=== PATIENT | female | born 1950 | race Caucasian/White ===

== ENCOUNTER 2023-09-03 07:07 | Inpatient (IN) ==
[2023-09-03] MEDS ORDERED: Morphine 4 MG/ML VIAL (1 ml) ONE (07:46)
[2023-09-03] MEDS: NS 0.9% 1000 ml BAG 1,000 ML IV ONE ×3 (07:52→11:26)
[2023-09-03] MEDS: fentaNYL 100 mcg/2 ml 50 MCG/ML VIAL IV SLOW PU ONE (07:52)
[2023-09-03] MEDS: Ondansetron 4 mg VIAL 2 MG/ML 2 ml VIAL IV ONE (07:52)
[2023-09-03] MEDS: Morphine 4 MG/ML VIAL (1 ml) IV ONE ×2 (07:52→08:34)
[2023-09-03 07:56] LABS: Venous Bicarbonate HCO3 19.8 mmol/L (24-28)
[2023-09-03 07:57] LABS: ABS Basophils 0.1 10^3/uL (0.0-0.1); ABS Lymphocytes 0.8 10^3/uL (1.0-4.8); ABS Monocytes 0.8 10^3/uL (0.0-0.9); ABS Neutrophils 15.2 10^3/uL (1.5-7.6); ABS Nucleated RBC 0.01 10^3/ul; Hematocrit 32.9 % (35-45); Hemoglobin 10.4 g/dL (11.5-14.3); Lymphocyte % 4.9 %; Mean Corpuscular Hgb Conc 31.6 g/dL (31-36); Mean Corpuscular Volume 75.9 fL (80-97); Nucleated Red Blood Cells % 0.1 %/100WBC (0.0-0.8); Platelet Count 414 10^3/uL (150-450); Red Blood Count 4.34 10^6/uL (3.63-4.92); Red Cell Distribution Width 17.3 % (12-17); White Blood Count 16.9 10^3/uL (3.8-11.8)
[2023-09-03 08:13] LABS: INR 1.46 (0.83-1.13)
[2023-09-03 08:42] LABS: Albumin 4.2 g/dL (3.2-5.2); Albumin/Globulin Ratio 1.4 (1-3); Calcium 9.9 mg/dL (8.6-10.3); Creatinine, Serum 1.16 mg/dL (0.51-0.95); Globulin 3.1 g/dL (2-4); Magnesium 1.8 mg/dL (1.9-2.7); Total Bilirubin 0.5 mg/dL (0.2-1.0); Total Protein 7.3 g/dL (6.4-8.9); eGFR CKD-EPI 49.5 (>60)
[2023-09-03 09:18] LABS: High Sensitivity Troponin 1 Hr 21 pg/mL (<15)
[2023-09-03] MEDS: Iohexol 350 (CONTRAST) 500 ML MDV IV ONE (09:42)
[2023-09-03 10:00] LABS: Urine Appearance Turbid; Urine Bilirubin Negative (Negative); Urine Blood Negative (Negative); Urine Color Yellow; Urine Glucose Negative (Negative); Urine Ketones 1+ (Negative); Urine Nitrite 1+ (Negative); Urine Protein 1+ (>=30 mg/dL) (Negative); Urine Specific Gravity 1.035 (1.002-1.030); Urine Urobilinogen Negative (Negative)
[2023-09-03 10:04] LABS: Urine Bacteria Absent /HPF (Absent); Urine Red Blood Cell Trace(0-2/hpf) /HPF (0-Trace); Urine Squamous Epithelial Cell Present /HPF (Absent); Urine White Blood Cell 1+(6-10/hpf) /HPF (0-Trace)
[2023-09-03] MEDS: Metoprolol Tartrate 5 mg VIAL 5 ml VIAL (1 mg/ml) IV ONE ×2 (11:37→15:20)
[2023-09-03] MEDS ORDERED: Metoprolol Tartrate 5 mg VIAL 5 ml VIAL (1 mg/ml) IV PRN ×2 (15:05→16:22)
[2023-09-03] MEDS: Digoxin IV 0.5 MG/2 ML AMP (0.25 MG/ML) IV ONE (15:18)
[2023-09-03] MEDS: Enoxaparin 100 MG/ML SYR SUBCUT SCH (15:21)
[2023-09-03] MEDS: Magnesium Sulfate 2 gm BAG 2 GM/50 ML BAG IVPB ONE (15:25)
[2023-09-03] MEDS: Metoprolol Tartrate 5 mg VIAL 5 ml VIAL (1 mg/ml) IV SCH (16:54)
[2023-09-03] MEDS: Digoxin IV 0.5 MG/2 ML AMP (0.25 MG/ML) IV SCH (20:21)
[2023-09-03] MEDS: Nystatin TOP POWDER 15 GM BTL TOPICAL SCH (20:30)
[2023-09-04 04:11] LABS: ABS Basophils 0.1 10^3/uL (0.0-0.1); ABS Eosinophils 0.1 10^3/uL (0.0-0.5); ABS Monocytes 1.3 10^3/uL (0.0-0.9); ABS Nucleated RBC 0.01 10^3/ul; Eosinophil % 0.7 %; Hematocrit 25.2 % (35-45); Hemoglobin 7.8 g/dL (11.5-14.3); Lymphocyte % 16.2 %; Mean Corpuscular Hemoglobin 23.8 pg (27-33); Mean Corpuscular Hgb Conc 31.1 g/dL (31-36); Mean Corpuscular Volume 76.4 fL (80-97); Mean Platelet Volume 7.4 fL (7.5-11.2); Platelet Count 290 10^3/uL (150-450); Red Cell Distribution Width 17.6 % (12-17); White Blood Count 12.4 10^3/uL (3.8-11.8)
[2023-09-04 05:06] LABS: ALT 11 U/L (7-52); AST 17 U/L (13-39); Albumin 3.3 g/dL (3.2-5.2); Albumin/Globulin Ratio 1.4 (1-3); Alkaline Phosphatase 81 U/L (35-149); Anion Gap 1 mmol/L (2-16); Blood Urea Nitrogen 16 mg/dL (6-24); CO2 Carbon Dioxide 27 mmol/L (22-32); Calcium 8.8 mg/dL (8.6-10.3); Chloride 114 mmol/L (101-111); Creatinine, Serum 1.06 mg/dL (0.51-0.95); Globulin 2.3 g/dL (2-4); Glucose 121 mg/dL (70-100); Magnesium 2.3 mg/dL (1.9-2.7); Potassium 4.6 mmol/L (3.5-5.0); Sodium 142 mmol/L (135-145); Total Bilirubin 0.4 mg/dL (0.2-1.0); Total Protein 5.6 g/dL (6.4-8.9); eGFR CKD-EPI 55.1 (>60)
[2023-09-04 08:39] LABS: % Iron Saturation 6 % (15-55); .Transferrin 240 mg/dL (203-362); Iron < 20 ug/dL (50-212); Total Iron Binding Capacity 336 mcg/dL (250-450); Unsaturated Iron Binding 316 ug/dL
[2023-09-04 09:02] LABS: Ferritin 5.4 ng/mL (11-307)
[2023-09-04 09:05] LABS: Folate 6.48 ng/mL (5.90-24.80)
[2023-09-04 09:06] LABS: Vitamin B12 146 pg/mL (180-914)
[2023-09-04] MEDS ORDERED: Metoprolol Tartrate 5 mg VIAL 5 ml VIAL (1 mg/ml) IV PRN (12:43)
[2023-09-04] MEDS: Ferric Gluconate IV 125 MG in NS 0.9% 100 ml BAG 100 ML IVPB ONE (13:52)
[2023-09-04 14:21] LABS: ABS Basophils 0.1 10^3/uL (0.0-0.1); ABS Eosinophils 0.2 10^3/uL (0.0-0.5); ABS Lymphocytes 1.5 10^3/uL (1.0-4.8); ABS Monocytes 1.2 10^3/uL (0.0-0.9); ABS Neutrophils 9.2 10^3/uL (1.5-7.6); ABS Nucleated RBC 0.01 10^3/ul; Eosinophil % 1.8 %; Hematocrit 24.9 % (35-45); Hemoglobin 7.8 g/dL (11.5-14.3); Lymphocyte % 12.5 %; Mean Corpuscular Hgb Conc 31.2 g/dL (31-36); Mean Corpuscular Volume 76.7 fL (80-97); Mean Platelet Volume 7.7 fL (7.5-11.2); Platelet Count 288 10^3/uL (150-450); Red Blood Count 3.25 10^6/uL (3.63-4.92); Red Cell Distribution Width 17.7 % (12-17); White Blood Count 12.3 10^3/uL (3.8-11.8)
[2023-09-04] MEDS: cefTRIAXone 1 gm/50 mL D5W 1 GM/50 ML BAG IV SCH ×2 (18:46→22:06)
[2023-09-05 06:01] LABS: ABS Basophils 0.1 10^3/uL (0.0-0.1); ABS Eosinophils 0.4 10^3/uL (0.0-0.5); ABS Lymphocytes 1.7 10^3/uL (1.0-4.8); ABS Monocytes 0.9 10^3/uL (0.0-0.9); ABS Neutrophils 5.8 10^3/uL (1.5-7.6); ABS Nucleated RBC 0.01 10^3/ul; Eosinophil % 5.1 %; Hematocrit 25.7 % (35-45); Hemoglobin 8.2 g/dL (11.5-14.3); Lymphocyte % 18.7 %; Mean Corpuscular Hemoglobin 24.1 pg (27-33); Mean Corpuscular Hgb Conc 31.7 g/dL (31-36); Mean Corpuscular Volume 75.9 fL (80-97); Mean Platelet Volume 7.3 fL (7.5-11.2); Nucleated Red Blood Cells % 0.1 %/100WBC (0.0-0.8); Platelet Count 241 10^3/uL (150-450); Red Blood Count 3.39 10^6/uL (3.63-4.92); Red Cell Distribution Width 17.8 % (12-17); White Blood Count 8.8 10^3/uL (3.8-11.8)
[2023-09-05 06:57] LABS: Calcium 8.8 mg/dL (8.6-10.3); Creatinine, Serum 0.87 mg/dL (0.51-0.95); Potassium 4.3 mmol/L (3.5-5.0); eGFR CKD-EPI 69.9 (>60)
[2023-09-05] MEDS: Cyanocobalamin INJ 1,000 MCG/ML VIAL 1 ML VIAL IM SCH (09:05)
[2023-09-05 09:54] VITALS: BP 123/66
[2023-09-05] MEDS: Sulfamethox/Trimethoprim DS TAB 800/160 mg PO ONE (12:23)
== END 2023-09-05 14:30 | disposition home or self-care (01) | DRG 309 ==
LOC: ED 07:07 → EDHOLD 13:31 → SUATTDRO 13:31 → ICU 13:42 → MEDTELE 16:09
PROVIDERS: ADMIT Student in an Organized Health Care Education/Training Program; ATTEND Hospitalist